=== PATIENT | male | born 1980 | race American Indian/Alaskan Native ===

== ENCOUNTER 2017-05-23 11:15 | Emergency (ER) | payer OTHER ==
[2017-05-23] MEDS ORDERED: NACL 0.9% 1000 ML 1,000 ML ONE (11:24)
[2017-05-23] MEDS ORDERED: NACL 0.9% 1000 ML 1,000 ML IV ONE (11:42)
[2017-05-23] MEDS ORDERED: ATIVAN IV ONE (12:06)
[2017-05-23] MEDS ORDERED: ANTIVERT PO ONE (12:06)
--- NOTE | 2017-05-23 12:15 | Emergency Department Report ---
HPI - General Chief Complaint: Syncope Time Seen by Provider: 05/23/17 11:59 - HPI HPI: Room 25 The patient is a 37-year-old male presenting with a chief complaint dizziness. The patient was coming to the hospital to visit his father who was recently admitted. The patient states he has some anxiety problems and has father had difficulty sleeping last night. The patient states also came and said began to feel dizzy and felt as though the room was spinning. Patient denies headache or losing consciousness but states he feels continued dizziness whenever he moves. Patient denies nausea/vomiting chest pain. Location: [See above] Duration: [See above] Quality: Vertiginous Severity: Moderate Modifying factors: [see above] Context: [see above] Mode of transportation: Unknown ED Past Medical Hx - Past Medical History Previous Medical History?: No - Surgical History Past Surgical History?: No - Family History Family history: no significant - Social History Smoking Status: Never Smoker Substance Use Type: None (denies illicit drug use) - Medications Home Medications: Home Medications Medication Instructions Recorded Confirmed Last Taken Type Azithromycin [Zithromax Z-BENTON] 0 mg PO DAILY #6 tab 05/23/17 Unknown Rx Meclizine [Antivert] 25 mg PO TID PRN #20 tablet 05/23/17 Unknown Rx ED Review of Systems ROS: Stated complaint: SYNCOPE Other details as noted in HPI Respiratory: shortness of breath (shallow breathing during the event?) Cardiovascular: denies: chest pain Neurological: vertigo. denies: headache Psychiatric: anxiety Physical Exam - Physical Exam Vital Signs: Vital Signs 05/23/17 05/23/17 11:26 11:40 Temperature 97.8 F Pulse Rate 59 L Respiratory 16 16 Rate Blood Pressure 108/67 O2 Sat by Pulse 99 99 Oximetry Physical Exam: GENERAL: The patient is well-developed well-nourished male lying on stretcher with head still not appearing to be in acute distress. [] HEENT: Normocephalic. Atraumatic. Extraocular motions are intact. Patient has moist mucous membranes. No nystagmus NECK: Supple. Trachea midline CHEST/LUNGS: Clear to auscultation. There is no respiratory distress noted. HEART/CARDIOVASCULAR: Regular. There is no tachycardia. There is no gallop rub or murmur. ABDOMEN: Abdomen is soft, nontender. Patient has normal bowel sounds. There is no abdominal distention. SKIN: There is no rash. There is no edema. There is no diaphoresis. NEURO: The patient is awake, alert, and oriented. The patient is cooperative. The patient has no focal neurologic deficits. The patient has normal speech. Cranial nerves II through XII grossly intact, no drift. No dysmetria noted with finger to nose bilaterally MUSCULOSKELETAL: There is no evidence of acute injury. ED Course Vital Signs 05/23/17 05/23/17 11:26 11:40 Temperature 97.8 F Pulse Rate 59 L Respiratory 16 16 Rate Blood Pressure 108/67 O2 Sat by Pulse 99 99 Oximetry - Reevaluation(s) Reevaluation #1: 05/23/17 14:06 Patient states he feels much improved ED Medical Decision Making - Lab Data Result diagrams: 05/23/17 12:31 05/23/17 12:31 Laboratory Tests 05/23/17 05/23/17 05/23/17 11:41 12:31 12:31 WBC 7.0 RBC 4.64 Hgb 12.8 Hct 40.8 MCV 88 MCH 28 MCHC 31 L RDW 16.0 H Plt Count 275 Lymph % (Auto) 8.7 L Dyer % (Auto) 8.2 H Eos % (Auto) 5.1 H Baso % (Auto) 0.8 Lymph # 0.6 L Dyer # 0.6 Eos # 0.4 Baso # 0.1 Seg Neutrophils % 77.2 H Seg Neutrophils # 5.4 D-Dimer 158.70 Sodium Potassium Chloride Carbon Dioxide Anion Gap BUN Creatinine Estimated GFR BUN/Creatinine Ratio Glucose POC Glucose 123 H Calcium Total Creatine Kinase CK-MB (CK-2) CK-MB (CK-2) Rel Index Troponin T TSH Free T4 05/23/17 05/23/17 12:31 12:31 WBC RBC Hgb Hct MCV MCH MCHC RDW Plt Count Lymph % (Auto) Dyer % (Auto) Eos % (Auto) Baso % (Auto) Lymph # Dyer # Eos # Baso # Seg Neutrophils % Seg Neutrophils # D-Dimer Sodium 139 Potassium 4.0 Chloride 100.7 Carbon Dioxide 24 Anion Gap 18 BUN 13 Creatinine 0.8 Estimated GFR > 60 BUN/Creatinine Ratio 16 Glucose 122 H POC Glucose Calcium 8.9 Total Creatine Kinase 105 CK-MB (CK-2) < 1.0 CK-MB (CK-2) Rel Index 0.9 Troponin T < 0.010 TSH 2.940 Free T4 1.13 - EKG Data -: EKG Interpreted by Me EKG shows normal: sinus rhythm Rate: normal - EKG Data When compared to previous EKG there are: previous EKG unavailable Interpretation: nonspecific ST-T wave baldemar (T-wave inversion in lead aVL, V2) - Radiology Data Radiology results: report reviewed (CT head), image reviewed (CT head) [facility] [address] [id number] Cat Scan Report Signed Patient: KILO ALEGRIA MR#: [id number] : 1980 Acct:[id number] Age/Sex: 37 / M ADM Date: 05/23/17 Loc: ED Attending Dr: Ordering Physician: MIKAYLA FISCHER MD Date of Service: 05/23/17 Procedure(s): CT head/brain wo con Accession Number(s): [id number] cc: MIKAYLA FISCHER MD CT HEAD WITHOUT CONTRAST INDICATION: Vertigo. COMPARISON: None similar. FINDINGS: Noncontrast head CT demonstrates mild bifrontal sulcal prominence, extending along the cortex. Symmetric ventricles. No acute infarct, hemorrhage, mass effect or midline shift. Approximately 4.4 cm left middle cranial fossa arachnoid cyst. Normal posterior fossa with preserved basilar cisterns. Normal imaged eye globes. Mild maxillary, sphenoid and anterior frontoethmoid sinus mucosal thickening, right slightly greater than left. Extensive bilateral external auditory canal debris may be directly visualized. Intact calvarium. Normal scalp. CONCLUSION: Approximately 4.4 cm left temporal lobe tip arachnoid cyst, mild sulcal atrophy more than expected for the patient's age and mild pansinusitis, as described. Please correlate. Thank you for the opportunity to participate in this patient's care. Transcribed By: RS Dictated By: JERED MEJIAS MD Electronically Authenticated By: JERED MEJIAS MD Signed Date/Time: 05/23/17 1240 DD/ 1236 TD/TT: 05/23/17 1240 - Differential Diagnosis anxiety, vertigo, ICH, PE Critical care attestation.: If time is entered above; I have spent that time in minutes in the direct care of this critically ill patient, excluding procedure time. ED Disposition Clinical Impression: Vertigo, Arachnoid cyst, Pansinusitis Disposition: DC-01 TO HOME OR SELFCARE Is pt being admited?: No Does the pt Need Aspirin: No Condition: Stable Instructions: Vertigo (ED) Additional Instructions: Return to the emergency department immediately should you develop worsening symptoms, fever, inability to tolerate food or liquid or any other concerns. Prescriptions: Azithromycin [Zithromax Z-BENTON] 0 mg PO DAILY #6 tab Meclizine [Antivert] 25 mg PO TID PRN #20 tablet PRN Reason: Vertigo Referrals: PRIMARY CARE, [Referring] - 3-5 Days NANO LUA MD [Staff Physician] - 3-5 Days (Dr. Lua is a neurologist. Please follow up with him for further evaluation of your vertigo and arachnoid cyst) JANNETH SANON MD [Staff Physician] - 3-5 Days (Dr. Sanon is an otolaryngologists (ear nose and throat doctor). Please follow-up with her for further evaluation of your sinusitis) Time of Disposition: 14:08
--- NOTE | 2017-05-23 12:46 | Cat Scan Report ---
CT HEAD WITHOUT CONTRAST INDICATION: Vertigo. COMPARISON: None similar. FINDINGS: Noncontrast head CT demonstrates mild bifrontal sulcal prominence, extending along the cortex. Symmetric ventricles. No acute infarct, hemorrhage, mass effect or midline shift. Approximately 4.4 cm left middle cranial fossa arachnoid cyst. Normal posterior fossa with preserved basilar cisterns. Normal imaged eye globes. Mild maxillary, sphenoid and anterior frontoethmoid sinus mucosal thickening, right slightly greater than left. Extensive bilateral external auditory canal debris may be directly visualized. Intact calvarium. Normal scalp. CONCLUSION: Approximately 4.4 cm left temporal lobe tip arachnoid cyst, mild sulcal atrophy more than expected for the patient's age and mild pansinusitis, as described. Please correlate. Thank you for the opportunity to participate in this patient's care.
[2017-05-23 13:25] LABS: Basophils # (Auto) 0.1 K/mm3 (0.0-0.1); Basophils % (Auto) 0.8 % (0.0-1.8); Eosinophils # (Auto) 0.4 K/mm3 (0.0-0.4); Eosinophils % (Auto) 5.1 % (0.0-4.3); Hematocrit 40.8 % (35.5-45.6); Hemoglobin 12.8 gm/dl (11.8-15.2); Lymphocytes # (Auto) 0.6 K/mm3 (1.2-5.4); Lymphocytes % (Auto) 8.7 % (13.4-35.0); Mean Corpuscular HGB Conc 31 % (32-34); Mean Corpuscular Hemoglobin 28 pg (28-32); Mean Corpuscular Volume 88 fl (84-94); Monocytes # (Auto) 0.6 K/mm3 (0.0-0.8); Monocytes % (Auto) 8.2 % (0.0-7.3); Platelet Count 275 K/mm3 (140-440); Red Blood Count 4.64 M/mm3 (3.65-5.03)
[2017-05-23 13:31] LABS: BUN/Creatinine Ratio 16; Blood Urea Nitrogen 13 mg/dL (9-20); Calcium 8.9 mg/dL (8.4-10.2); Hemolysis Index 24
[2017-05-23 13:49] LABS: Creatine Kinase MB < 1.0 ng/mL (0.0-4.0)
[2017-05-23 13:51] LABS: Free T4 (Free Thyroxine) 1.13 ng/dL (0.76-1.46)
[2017-05-23 14:44] VITALS: BP 110/67
== END 2017-05-23 14:50 | disposition home or self-care (01) ==
LOC: ED 11:15
DX: J38.7 Other diseases of larynx (principal); J32.4 Chronic pansinusitis; R42 Dizziness and giddiness
CPT/HCPCS: 36415; 70450; 80048; 82550; 82553; 82962; 84439; 84443; 84484; 85025; 85379; 93005; 93010; 96361; 96374; 99284; J2060; J7030